=== PATIENT | female | born 1955 | race Caucasian/White ===

== ENCOUNTER 2024-05-26 07:03 | Day surgery (SDC) | payer MEDICARE, BC ==
[2024-05-24 16:21] LABS: BASOPHILS % (AUTO) 0.7 % (0-1); EOSINOPHILS # (AUTO) 0.1 X10'3 (0-0.9); EOSINOPHILS % (AUTO) 1.1 % (0-6); LYMPHOCYTES % (AUTO) 30.6 % (21-51); MEAN CORPUSCULAR HEMOGLOBIN 30.9 PG (27.0-31.0); MEAN CORPUSCULAR HGB CONC 33.8 g/dL (33.0-36.5); MEAN CORPUSCULAR VOLUME 91.4 FL (78-98); MEAN PLATELET VOLUME 8.7 FL (7.4-10.4); MONOCYTES # (AUTO) 0.6 X10'3 (0-0.9); MONOCYTES % (AUTO) 8.9 % (2-12); NEUTROPHILS # (AUTO) 3.9 X10'3 (1.8-7.7); NEUTROPHILS % (AUTO) 58.7 % (42-75); PRE OP HEMATOCRIT 41.5 % (35.0-45.0); PRE OP PLATELET COUNT 211 X10'3 (140-440); PRE OP WHITE BLOOD COUNT 6.6 10'3 (4.8-10.8); RED BLOOD COUNT 4.54 X10'6 (4.20-5.60); RED CELL DISTRIBUTION WIDTH 12.7 % (11.5-14.5)
[2024-05-24 16:39] LABS: ALBUMIN 3.8 G/DL (3.4-5.0); ALBUMIN/GLOBULIN RATIO 1.3 (1.1-1.5); ALKALINE PHOSPHATASE 53 IU/L (46-116); BLOOD UREA NITROGEN 16 MG/DL (7-18); BUN/CREATININE RATIO 18.6 (10.0-20.0); CHLORIDE 107 MMOL/L (99-107); CREATININE 0.86 MG/DL (0.40-0.90); PRE OP ALT 32 U/L (30-65); PRE OP ANION GAP 3 (8-16); PRE OP AST 22 U/L (10-37); PRE OP BILIRUB, TOTAL 0.7 MG/DL (0.0-1.0); PRE OP GLUCOSE 88 MG/DL (70-104); PRE OP POTASSIUM 4.4 MMOL/L (3.4-5.1); PRE OP SODIUM 141 MMOL/L (135-145); TOTAL CARBON DIOXIDE 30.8 MMOL/L (24-32); TOTAL PROTEIN 6.8 G/DL (6.4-8.2); eGFR 66 ML/MIN
[~2024-05-26] VITALS: Ht 172.7 cm; Wt 65.8 kg
[2024-05-26] MEDS: ceFAZolin 2gm in dextrose, iso 50 ML IV ONE (05:30)
[~2024-05-26 07:03] MED LIST: BUPIVAcaine 2.5mg/ml inj 50ml vial (contains preservative) ONE; DUPI300S; LIDOcaine 1% 30ml preserv. free vial ONE; MECO10005 PO; OMEG-166 PO; VITA1TAB97 PO
[2024-05-26 07:45] VITALS: BP 132/70; PULSE 65; RESP 16; TEMP 97.8; O2SAT 100
[2024-05-26] MEDS: famotidine 20mg tablet PO ONE (08:09)
[2024-05-26] MEDS: ringers solution, lacted 1,000 ML IV SCH ×2 (08:09→09:20)
[2024-05-26] MEDS ORDERED: sevoflurane 250ml liquid IH ONE (08:36)
[2024-05-26] MEDS ORDERED: acetaminophen 1,000mg/100ml IV 0 ML IV ONE (08:44)
[2024-05-26] MEDS ORDERED: fentaNYL/PF 50MCG/1 ML 2ML syringe ONE (08:45)
[2024-05-26] MEDS ORDERED: ondansetron/PF 4mg/2ml inj ONE (08:45)
[2024-05-26] MEDS ORDERED: LIDOcaine 2% (20mg/ml) 5ml vial ONE (08:45)
[2024-05-26] MEDS ORDERED: propofol inj 20 ML IV ONE (08:45)
[2024-05-26] MEDS ORDERED: acetaminophen 1,000mg/100ml IV 100 ML IV ONE (08:45)
[2024-05-26] MEDS: BUPIVAcaine/PF 2.5 mg/ml (0.25%) 30ml vial IJ ONE (09:08)
[2024-05-26] MEDS ORDERED: hydrALAZINE 20mg/ml inj. IV PRN (09:20)
[2024-05-26] MEDS ORDERED: ondansetron/PF 4mg/2ml inj IV PRN (09:20)
[2024-05-26] MEDS ORDERED: morphine 4 MG/ML inj SYRINge IV PRN (09:20)
[2024-05-26] MEDS ORDERED: labetalol 20mg/4ml (5mg/ml) syringe IV PRN (09:20)
[2024-05-26] MEDS ORDERED: fentaNYL/PF 50MCG/1 ML 2ML syringe IV PRN ×2 (09:20)
[2024-05-26 09:55] VITALS: BP 144/68; PULSE 75; RESP 12; O2SAT 100
[2024-05-26 10:05] VITALS: BP 90/37; PULSE 67; RESP 14; O2SAT 100
[2024-05-26 10:15] VITALS: BP 133/86; PULSE 74; RESP 16; O2SAT 90
[2024-05-26 10:25] VITALS: BP 138/77; PULSE 66; RESP 16; O2SAT 100
[2024-05-26 10:35] VITALS: BP 138/77; PULSE 64; RESP 17; O2SAT 100
[2024-05-26] MEDS: morphine 2 MG/ML inj. syringe IV PRN (10:40)
== END 2024-05-26 10:55 | disposition home or self-care (01) ==
LOC: PAS 07:03
PROVIDERS: ATTEND Surgery
DX: C50.412 Malignant neoplasm of upper-outer quadrant of left female breast (principal); M19.90 Unspecified osteoarthritis, unspecified site; G89.18 Other acute postprocedural pain; Z98.49 Cataract extraction status, unspecified eye; Z88.8 Allergy status to other drugs, medicaments and biological substances; Z91.040 Latex allergy status; Z79.899 Other long term (current) drug therapy
CPT/HCPCS: 19301; 36415; 38525; 38792; 64420; 64421; 80053; 82948; 85025; 93005; A4215; A4618; A6258; A6402; A7000; J0131; J0690; J1100; J2003; J2270; J2405; J2704; J3010; J3490; J7030; J7120; Z7506; Z7508; Z7512; Z7610; A6449